=== PATIENT | male | born 1975 | race Caucasian/White ===

== ENCOUNTER 2022-05-20 00:39 | Emergency (ER) | payer MEDICAID, OTHER ==
[~2022-05-20] VITALS: Ht 172.7 cm; Wt 70.5 kg
[~2022-05-20 00:39] MED LIST: FOLI-130 PO; LIB25 PO; MAGN400T7 PO; THIAMINE HCL100 MG PO
[2022-05-20 01:26] VITALS: BP 115/72
[2022-05-20] MEDS ORDERED: SULF-261 PO (01:27)
[2022-05-20] MEDS ORDERED: IBUP-2070 PO (01:27)
[2022-05-20] MEDS ORDERED: CEPH-558 PO (01:27)
[2022-05-20] MEDS ORDERED: CEPHALEXIN MONOHYDRATE 500 MG CAPSULE PO ONE (01:30)
[2022-05-20] MEDS ORDERED: SULFAMETHOX/TRIMETH DS 800-160 MG/TABLET PO ONE (01:30)
[2022-05-20] MEDS ORDERED: IBUPROFEN 600 MG TABLET PO ONE (01:30)
== END 2022-05-20 01:37 | disposition home or self-care (01) ==
LOC: EMS 00:40
DX: H70.001 Acute mastoiditis without complications, right ear (principal); F10.20 Alcohol dependence, uncomplicated
CPT/HCPCS: 99284; Z7502; Z7610